=== PATIENT | male | born 1945 | race Caucasian/White ===

== ENCOUNTER 2018-09-26 09:16 | Day surgery (SDC) | payer MEDICARE, BC ==
[2018-09-25 16:48] VITALS: BMI 38.2
[~2018-09-26 09:16] MED LIST: Cyclopentolate 1% Opth Drop 2 ML BOT FS SCH; Fentanyl 100 MCG/2 ML VIAL ONE; Fluorouracil 100 MG, Enoxaparin Sodium 25 MG, EPINEPHrine 0.3 MG in Ophthalmic Irrigati... FS SCH; Midazolam HCl 2 mg/2 ml Vial ONE; Phenylephrine 2.5% Ophth Soln 5 ML BOT FS SCH
[2018-09-26] MEDS ORDERED: Phenylephrine 2.5% Ophth Soln 5 ML BOT ONE (10:36)
[2018-09-26] MEDS ORDERED: Cyclopentolate 1% Opth Drop 2 ML BOT ONE (10:36)
--- NOTE | 2018-09-26 15:17 | OP ---
DATE OF PROCEDURE: 09/26/2018 PREOPERATIVE DIAGNOSIS: Rhegmatogenous retinal detachment, right eye. POSTOPERATIVE DIAGNOSIS: Rhegmatogenous retinal detachment, right eye. PROCEDURE PERFORMED: Pars plana vitrectomy and retinal detachment repair, right eye. ANESTHESIA: Local with monitored anesthesia care. DESCRIPTION OF PROCEDURE: The patient was identified in the preoperative holding area. Appropriate informed consent for planned surgical procedure on the right eye had been obtained. The patient was transferred to the operative suite. Appropriate cardiopulmonary monitoring was established. Local anesthesia was obtained using retrobulbar modified Van Lint lid block using 50:50 mixture of 4% lidocaine and 0.75% bupivacaine. The patient was prepped and draped in usual sterile manner for ophthalmic surgery of right eye. A lid speculum was placed in the right eye. A 25-gauge trocar was placed through the conjunctiva and sclera superotemporally, inferotemporally, and supranasally. Infusion line was placed inferotemporally. Light pipe vitreous cutter inserted into the eye. Core vitrectomy was performed. Vitreous base was trimmed back to 360 degrees using wide-field viewing system. Multiple tears were located in all 4 quadrants. Retina was totally detached except for his inferior nasal area. Overall, breaks were marked and vitreous was carefully removed from all breaks. Posterior drained retinotomy was created inferior to the nerve. Complete air-fluid exchange was performed with 10 minutes being left for fluid to drain posteriorly. 360 laser was placed using Endolaser delivery device. 15% propane gas was infused into the eye. Trocars were removed. The eye was noted to retain pressure well. Retrobulbar Kenalog and subconjunctival Ancef were placed. Atropine antibiotic ointment was placed and the eye was patched and shielded. The patient was taken to the postoperative recovery unit in good condition, having suffered no immediate perioperative complications. The patient was instructed to keep the patch and shield on, positioned the left side down. Followup in the morning with Dr. Vanessa. Job ID: [id number]
[2018-09-26] MEDS ORDERED: Maxitrol 0.1% Opth Oint 3.5 GM TUBE ONE (16:29)
[2018-09-26] MEDS ORDERED: Bupivacaine 0.75% 10 ML AMP ONE (16:29)
[2018-09-26] MEDS ORDERED: PROPOFOL 200 MG/20 ML VIAL ONE (16:29)
[2018-09-26] MEDS ORDERED: Lidocaine 1% PF 5 ML VIAL ONE (16:29)
[2018-09-26] MEDS ORDERED: Lidocaine 4% PF 5 ML AMP ONE (16:29)
[2018-09-26] MEDS ORDERED: CEFAZOLIN 1 GM VIAL ONE (16:29)
[2018-09-26] MEDS ORDERED: Triamcinolone 40 MG/ML VIAL ONE (16:29)
== END 2018-09-26 14:18 | disposition home or self-care (01) ==
LOC: SDC 09:16
PROVIDERS: ATTEND Ophthalmology Retina Specialist
PROC: 08T43ZZ Resection of Right Vitreous, Percutaneous Approach (ICD-10-PCS; principal; 2018-09-26)
PROC: 08QE3ZZ Repair Right Retina, Percutaneous Approach (ICD-10-PCS; 2018-09-26)
DX: H33.021 Retinal detachment with multiple breaks, right eye (principal); E66.9 Obesity, unspecified; Z68.38 Body mass index [BMI] 38.0-38.9, adult; Z79.02 Long term (current) use of antithrombotics/antiplatelets; Z79.4 Long term (current) use of insulin; Z79.82 Long term (current) use of aspirin; Z79.899 Other long term (current) drug therapy
CPT/HCPCS: 36416; 67025; J0171; J0690; J1650; J2001; J2250; J2704; J3010; J3301; J3490; J9190

== ENCOUNTER 2022-01-02 09:42 | Outpatient (CLI) | payer MEDICARE, BC ==
[2022-01-02 23:05] LABS: SARS-CoV-2 PCR by NAA Not Detected (NotDetected)
== END 2022-01-02 09:43 | disposition home or self-care (01) ==
LOC: LABBT 09:42
PROVIDERS: ATTEND Ophthalmology Retina Specialist
DX: H35.371 Puckering of macula, right eye (principal); Z20.822 Contact with and (suspected) exposure to COVID-19
CPT/HCPCS: U0003; U0005

== ENCOUNTER 2022-01-05 07:14 | Day surgery (SDC) | payer MEDICARE, OTHER ==
[2022-01-03 10:36] VITALS: BMI 36.9
[~2022-01-05 07:14] MED LIST changes: -Cyclopentolate 1% Opth Drop 2 ML BOT FS SCH; -Fentanyl 100 MCG/2 ML VIAL ONE; -Fluorouracil 100 MG, Enoxaparin Sodium 25 MG, EPINEPHrine 0.3 MG in Ophthalmic Irrigati... FS SCH; +Fluorouracil 100 MG, Enoxaparin Sodium 25 MG, EPINEPHrine 0.3 MG in Ophthalmic Irrigati... IRR SCH; -Phenylephrine 2.5% Ophth Soln 5 ML BOT FS SCH; +fentaNYL Citrate/PF 100 MCG/2 ML SYRINGE ONE
[2022-01-05] MEDS ORDERED: Phenylephrine 2.5% Ophth Soln 5 ML BOT ONE (08:09)
[2022-01-05] MEDS ORDERED: Cyclopentolate 1% Opth Drop 2 ML BOT ONE (08:09)
[2022-01-05] MEDS ORDERED: Maxitrol 0.1% Opth Oint 3.5 GM TUBE ONE (09:39)
[2022-01-05] MEDS ORDERED: CEFAZOLIN 1 GM VIAL ONE (09:39)
[2022-01-05] MEDS ORDERED: PROPOFOL 200 MG/20 ML VIAL ONE (09:39)
[2022-01-05] MEDS ORDERED: Enoxaparin Sodium 30 MG/0.3 ML SYRINGE ONE (09:39)
[2022-01-05] MEDS ORDERED: Lidocaine 4% PF 5 ML AMP ONE (09:39)
[2022-01-05] MEDS ORDERED: Bupivacaine 0.75% 10 ML VIAL ONE (09:39)
[2022-01-05] MEDS ORDERED: Triamcinolone 40 MG/ML VIAL ONE (09:39)
[2022-01-05] MEDS ORDERED: Lidocaine 1% PF 5 ML VIAL ONE (09:39)
[2022-01-05] MEDS ORDERED: Indocyanine Green 25 MG/10 ML VIAL ONE (09:39)
== END 2022-01-05 11:49 | disposition home or self-care (01) ==
LOC: SDC 07:14
PROVIDERS: ATTEND Ophthalmology Retina Specialist
PROC: 08T43ZZ Resection of Right Vitreous, Percutaneous Approach (ICD-10-PCS; principal; 2022-01-05)
PROC: 08NE3ZZ Release Right Retina, Percutaneous Approach (ICD-10-PCS; 2022-01-05)
DX: H35.371 Puckering of macula, right eye (principal); Z79.01 Long term (current) use of anticoagulants; Z79.02 Long term (current) use of antithrombotics/antiplatelets; Z79.4 Long term (current) use of insulin; Z79.899 Other long term (current) drug therapy
CPT/HCPCS: J0171; J0690; J1650; J2250; J2704; J3301; J3490; J9190